=== PATIENT | female | born 1985 | race Two or more races ===

== ENCOUNTER 2017-08-28 06:56 | Outpatient (CLI) | payer OTHER ==
[~2017-08-28] VITALS: Ht 154.9 cm; Wt 55.9 kg
== END 2017-08-28 08:38 | disposition home or self-care (01) ==
LOC: LDOP 06:56
PROVIDERS: ATTEND Obstetrics & Gynecology
DX: O26.893 Other specified pregnancy related conditions, third trimester (principal); R10.9 Unspecified abdominal pain; Z3A.38 38 weeks gestation of pregnancy
CPT/HCPCS: 59025; 99201; G0463

== ENCOUNTER 2017-08-28 13:52 | Inpatient (IN) | payer OTHER ==
[~2017-08-28] VITALS: Ht 154.9 cm; Wt 55.9 kg
[2017-08-28] MEDS ORDERED: OXYTOCIN 30U/ 0.9% NaCL 500ML 500 ML IV ONE (14:14)
[2017-08-28] MEDS ORDERED: D5%-LACTATED RINGERS 1,000 ML IV SCH (14:14)
[2017-08-28] MEDS ORDERED: ONDANSETRON 2MG/ML, 2ML IVPush PRN (14:30)
[2017-08-28] MEDS ORDERED: CALCIUM CARBONATE 500 MG TAB.CHEW PO PRN (14:30)
[2017-08-28] MEDS ORDERED: FENTANYL PF 100 MCG/2ML IV PRN (14:30)
[2017-08-28] MEDS ORDERED: BUTORPHANOL 1 MG/ML, 1ML IVPush PRN (14:30)
[2017-08-28] MEDS ORDERED: PLEASE ENTER HEIGHT AND WEIGHT MC SCH (14:30)
[2017-08-28 14:44] LABS: BASOPHILS # (AUTO) 0.04 x10^3/uL (0-0.1); BASOPHILS % (AUTO) 0 % (0-1); EOSINOPHILS # (AUTO) 0.16 x10^3/uL (0-0.4); EOSINOPHILS % (AUTO) 1 % (1-7); LYMPHOCYTES # (AUTO) 3.06 x10^3/uL (1-3.4); LYMPHOCYTES % (AUTO) 20 % (22-44); MD NO; MEAN CORPUSCULAR HEMOGLOBIN 29.1 pg (27.0-34.8); MEAN CORPUSCULAR HGB CONC 33.8 g/dL (32.4-35.8); MEAN CORPUSCULAR VOLUME 86.3 fL (80-100); MEAN PLATELET VOLUME 9.9 fL (7.4-10.4); MONOCYTES # (AUTO) 0.87 x10^3/uL (0.2-0.8); MONOCYTES % (AUTO) 6 % (2-9); NEUTROPHILS # (AUTO) 10.97 x10^3/uL (1.8-6.8); NEUTROPHILS % (AUTO) 73 % (42-75); PLATELET COUNT 160 x10^3/uL (130-400); RED BLOOD COUNT 5.34 x10^6/uL (3.82-5.3); RED CELL DISTRIBUTION WIDTH 13.6 % (9.6-15.2)
[2017-08-28] MEDS: LACTATED RINGERS 1,000 ML IV SCH (14:45)
[2017-08-28] MEDS ORDERED: NEWBORN KIT ONE (15:11)
[2017-08-28] MEDS ORDERED: MISOPROSTOL 200 MCG TABLET ONE (15:12)
[2017-08-28] MEDS ORDERED: LIDOCAINE 1%, 20ML ONE (15:12)
[2017-08-28] MEDS ORDERED: OXYTOCIN 30U/ 0.9% NaCL 500ML 500 ML ONE (15:12)
[2017-08-28] MEDS ORDERED: FENTANYL PF 100 MCG/2ML ONE (18:40)
[2017-08-28 19:10] VITALS: BP 127/67
[2017-08-28] MEDS ORDERED: BUPIVACAINE 0.25% ONE ×3 (19:36→20:28)
[2017-08-28] MEDS ORDERED: FENTANYL/BUPIV./NS/PF 250 ML EPIDCONT ONE (19:37)
[2017-08-28] MEDS ORDERED: FENTANYL/BUPIV./NS/PF 250 ML EPIDCONT SCH (20:05)
[2017-08-28] MEDS ORDERED: LACTATED RINGERS 1,000 ML IV SCH (20:05)
[2017-08-28] MEDS ORDERED: LACTATED RINGERS 1,000 ML IVBOLUS PRN (20:30)
[2017-08-29] MEDS ORDERED: IBUPROFEN 600 MG TABLET ONE (09:17)
[2017-08-29] MEDS: IBUPROFEN 600 MG TABLET PO PRN ×3 (10:12→23:55)
[2017-08-29] MEDS ORDERED: OXYTOCIN 30U/ 0.9% NaCL 500ML 500 ML ONE (10:28)
[2017-08-29] MEDS: LACTATED RINGERS 1,000 ML IV SCH (10:29)
[2017-08-29] MEDS: OXYTOCIN 30U/ 0.9% NaCL 500ML 500 ML IV SCH ×2 (10:30→19:19)
[2017-08-29 11:00] VITALS: BP 111/69
[2017-08-29] MEDS: OXYcodone/APAP 5/325MG TABLET PO PRN ×2 (11:11→16:59)
[2017-08-29 11:30] VITALS: BP 120/74
[2017-08-29] MEDS ORDERED: CALCIUM CARBONATE 500 MG TAB.CHEW PO PRN (12:00)
[2017-08-29] MEDS ORDERED: CARBOPROST TROMETHAMINE 250 MCG/ML, 1ML IM PRN (12:00)
[2017-08-29] MEDS ORDERED: MISOPROSTOL 200 MCG TABLET PR PRN (12:00)
[2017-08-29] MEDS ORDERED: METHYLERGONOVINE 0.2 MG/ML IM PRN (12:00)
[2017-08-29 12:05] VITALS: BP 116/71
[2017-08-29 15:40] VITALS: BP 114/74
[2017-08-29] MEDS: DOCUSATE 100 MG CAPSULE PO PRN (16:59)
[2017-08-29 19:25] VITALS: BP 103/66
[2017-08-29 23:55] VITALS: BP 113/78
[2017-08-30] MEDS: OXYcodone/APAP 5/325MG TABLET PO PRN ×2 (01:26→07:58)
[2017-08-30] MEDS: OXYTOCIN 30U/ 0.9% NaCL 500ML 500 ML IV SCH ×2 (03:56→15:19)
[2017-08-30 04:20] VITALS: BP 96/59
[2017-08-30] MEDS: PRENATAL VIT/IRON/FA 1 EACH TABLET PO SCH (07:58)
[2017-08-30] MEDS: IBUPROFEN 600 MG TABLET PO PRN (07:59)
[2017-08-30 08:08] VITALS: BP 110/78
[2017-08-30] MEDS ORDERED: OXYC-302 PO (16:40)
[2017-08-30] MEDS ORDERED: IBUP-1222 PO (16:41)
[2017-08-30 19:50] VITALS: BP 110/74
[2017-08-30] MEDS: DOCUSATE 100 MG CAPSULE PO PRN (23:34)
[2017-08-31] MEDS: OXYTOCIN 30U/ 0.9% NaCL 500ML 500 ML IV SCH (01:19)
[2017-08-31 07:55] VITALS: BP 113/72
[2017-08-31] MEDS: PRENATAL VIT/IRON/FA 1 EACH TABLET PO SCH (07:55)
[2017-08-31] MEDS: DOCUSATE 100 MG CAPSULE PO PRN (07:55)
[2017-08-31] MEDS: IBUPROFEN 600 MG TABLET PO PRN (07:55)
== END 2017-08-31 12:15 | disposition home or self-care (01) | DRG 775 ==
LOC: LDOP 13:52 → LDIP 14:20 → 2NW 08-29 10:45
PROVIDERS: ADMIT Obstetrics & Gynecology; ATTEND Obstetrics & Gynecology
PROC: 10E0XZZ Delivery of Products of Conception, External Approach (ICD-10-PCS; principal; 2017-08-29)
PROC: 0KQM0ZZ Repair Perineum Muscle, Open Approach (ICD-10-PCS; 2017-08-29)
PROC: 3E0R3BZ Introduction of Anesthetic Agent into Spinal Canal, Percutaneous Approach (ICD-10-PCS; 2017-08-29)
PROC: 00HU33Z Insertion of Infusion Device into Spinal Canal, Percutaneous Approach (ICD-10-PCS; 2017-08-29)
DX: O70.1 Second degree perineal laceration during delivery (principal); Z37.0 Single live birth; Z3A.38 38 weeks gestation of pregnancy
CPT/HCPCS: 36415; 85025; 86850; 86900; J2590; J7120; J7121